=== PATIENT | female | born 1990 | race Caucasian/White ===

== ENCOUNTER → 2020-03-29 15:34 | Outpatient (CLI) | payer OTHER, SELFPAY ==
[2020-03-29 14:56] VITALS: BMI 23.5
[2020-03-29 16:59] LABS: Absolute Lymphocyte Count 1.93 X10^3/uL (0.83-4.51); Absolute Neutrophil Count 3.8 X10^3/uL (2.0-7.7); Basophil# 0.06 X10^3/uL; Basophil% 0.9 % (0-1); Eosinophil# 0.17 X10^3/uL; Eosinophils% 2.5 % (0-5); Hematocrit 43.3 % (37-47); Hemoglobin 14.2 g/dL (12.0-15.0); Lymphocyte # 1.93 X10^3/ul (4.0); Lymphocyte % 28.6 % (19-41); Mean Corp Hgb Conc 32.8 g/dL (32-36); Mean Corpuscular Hgb 30.3 pg (27.0-32.0); Mean Corpuscular Volume 92.5 fL (81-99); Monocyte# 0.75 X10^3/uL; Monocyte% 11.1 % (0-10); NRBC Flagged by Analyzer 0 % (0-5); Neutrophil # 3.83 X10^3/uL (2.7-7.7); Neutrophil % 56.8 % (47-70); Platelet Count 302 K/mm3 (150-450); RBC Distribution Width SD 40.9 fl (35.1-43.9); Red Blood Count 4.68 M/mm3 (4.2-5.4); White Blood Count 6.8 K/mm3 (4.4-11.0)
[2020-03-29 17:35] LABS: AST(SGOT) 13 U/L (15-37); Alanine Aminotransfer ALT/SGPT 18 U/L (13-56); Albumin, Serum 3.5 g/dL (3.2-5.0); Alkaline Phosphatase 77 U/L (45-117); Anion Gap 4 (5-15); BUN 11 mg/dL (7-18); BUN/Creat Ratio 14.9 RATIO (10-20); Calcium,Total 8.4 mg/dL (8.5-10.1); Chloride 109 mmol/L (98-107); Cholesterol 197 mg/dL (200); Creatinine, Serum 0.74 mg/dL (0.55-1.02); EST Glomerular Filtration Rate 100 mL/min (>60); Est Glom Filt Rate - Afr Amer 121 mL/min (>60); Globulin 3.5 g/dL (2.2-4.2); Glucose 81 mg/dL (74-106); High Density Lipoprotein 50 mg/dL; Potassium 4.3 mmol/L (3.5-5.1); Sodium Level 139 mmol/L (136-145); Thyroid Stim Hormone (TSH) 0.96 uIU/mL (0.358-3.74); Triglycerides 138 mg/dL; Very Low Density Lipoprotein 28 mg/dL (5-40)
== END ==
PROVIDERS: PCP Internal Medicine; Referring Provider Nurse Practitioner Family; Visit Provider Nurse Practitioner Family
DX: R03.0 Elevated blood-pressure reading, without diagnosis of hypertension (principal); F41.9 Anxiety disorder, unspecified
CPT/HCPCS: 36415; 80053; 80061; 84443; 85025

== ENCOUNTER 2020-04-04 20:36 | Emergency (ER) | payer OTHER, SELFPAY ==
[2020-03-29 14:56] VITALS: BMI 23.5
[2020-04-04 20:38] VITALS: BP 144/80; PULSE 81; RESP 16; TEMP 36.8; O2SAT 98; BMI 23.0
--- NOTE | 2020-04-04 22:48 | EKG12_ITS ---
Test Reason : CP Blood Pressure : / mmHG Vent. Rate : 057 BPM Atrial Rate : 057 BPM P-R Int : 116 ms QRS Dur : 076 ms QT Int : 400 ms P-R-T Axes : -14 081 056 degrees QTc Int : 389 ms Sinus bradycardia Otherwise normal ECG Confirmed by JAYSON HARRISON, SYDNIE ([id number]), market editor MANFRED MIXON ([id number]) on 04/08/2020 9:39:46 AM Referred By: JOHN Confirmed By:MADAN TYLER MD
--- NOTE | 2020-04-04 23:15 | RAD_ITS ---
STUDY: X-RAY CHEST REASON FOR EXAM: Female, 29 years old. patient complains of anxiety attacks x 4 months. Has heart palpitations and sob. chest pain x 1 week. TECHNIQUE: Frontal and lateral views of the chest. COMPARISON: None. FINDINGS: The lungs are clear and expanded. There is no demonstrated pleural abnormality. Normal size heart. Normal mediastinum and nestor. Normal visualized pulmonary arteries. Normal visualized aortic arch and descending thoracic aorta. Normal visualized thoracic spine. Normal visualized ribs, clavicles, and shoulders. There is no demonstrated abnormality of the visualized soft tissue structures of the upper abdomen. RAD/Chest PA and Lateral IMPRESSION: Normal x-ray examination of the chest. Electronically Signed: Renaldo Copeland MD at 0:43 EDT Tel , Service support ,
[2020-04-04] MEDS: LORazepam 1 MG Tablet PO (23:26)
--- NOTE | 2020-04-05 00:06 | ED.DCSUM_ITS ---
History of Present Illness Chief Complaint: Anxiety Informant: Patient Onset: Month(s) Narrative: Patient has a long history of anxiety. She recently started seeing Tommie Butt at Dr. Kenyon's office. She was seen on March 29 and blood work was unremarkable. She was started on BuSpar. She developed chest pain and that medication was stopped on the fourth. She was started on sertraline. Luana took 1 dose of sertraline and called the office stating that she still not feel well on this medication. She does have hydroxyzine at home to use for anxiety, but only took 1 dose 3 days ago. She presents with some continued chest tightness and shortness of breath. She states she was reading the side effects of the medication that she was given and was worried about serotonin syndrome. - Past Medical History (1) Anxiety Status: Chronic Past Medical History - Allergies and Home Meds Allergies/Adverse Reactions: Allergies shellfish derived Allergy (Mild, Verified 04/04/20 20:40) swelling Primary Care Physician: Tala Kenyon MD [Primary Care Provider] - Prior records reviewed: Yes Smoking Status: Never smoker Review of Systems General: Denies: Chills, Fever Eyes: Denies: Visual changes - bilaterally ENT: Denies: Bilateral ear pain Cardiovascular: Reports: Chest pain Respiratory: Reports: Dyspnea Gastrointestinal: Denies: Abdominal pain, Vomiting, Diarrhea Musculoskeletal: Denies: Extremity Pain Skin: Denies: Rash Neurological: Denies: Headache Hematologic: Denies: Easy bruising, Easy bleeding Allergy: Denies: Uticaria Physical Exam Vital Signs/Narrative: Vital Signs Temp Pulse Resp BP Pulse Ox 04/04/20 20:38 98.3 F 81 16 144/80 H 98 Inital Vital Signs reviewed: Yes General: Well nourished, Well developed Head: Normocephalic ENT: Moist mucous membranes Neck: Supple Cardiovascular: Regular rate, Regular rhythm Respiratory: No distress, CTA bilaterally Abdomen: Soft, Nontender Extremities: Nontender, No edema Skin: Normal color, No rash Neurological: Alert, Oriented x3, Normal Strength, Normal Sensation Psychological: Normal affect Diagnostic/Tx/Re-eval Chest X-Ray - ED: 2 View, Read by ED Physician, Normal, Heart, Lungs, Mediastinum - EKG Initial EKG Interpretation: Sinus Bradycardia - Sinus bradycardia 57 bpm. No acute ischemia. - Medical Decision Making Patient was given 1 mg of p.o. Ativan here. 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 Blood work from last week was reviewed and unremarkable. I do not feel that repeat labs are needed at this time. I advised the patient I believe her chest tightness that she is feeling is secondary to her anxiety, not medication side effect. I will write her a short course of Ativan to use at home. She is to call Tommie Butt tomorrow to update him on her symptoms and for any further prescriptions. ED Disposition - Plan for ED Patient: Disposition: Home or Assisted Living Diagnosis: Anxiety Instructions: ED Stress React Prescriptions: Lorazepam [Ativan] 1 mg PO TID #10 tablet Transmission Status: Sent to [facility] Referrals: Tala Kenyon MD [Primary Care Provider] - As soon as possible
[2020-04-05 00:14] VITALS: RESP 16
== END 2020-04-05 00:16 | disposition home or self-care (01) ==
PROVIDERS: Emergency Provider Emergency Medicine; PCP Internal Medicine
DX: F41.9 Anxiety disorder, unspecified (principal)
CPT/HCPCS: 71046; 93005; 99284

== ENCOUNTER → 2020-07-17 13:18 | Outpatient (CLI) | payer OTHER, SELFPAY | PROVIDERS: PCP Nurse Practitioner Family; Referring Provider Physician Assistant Surgical; Visit Provider Physician Assistant Surgical | DX: Z20.828 Contact with and (suspected) exposure to other viral communicable diseases (principal) | CPT/HCPCS: 87635; U0003 ==

== ENCOUNTER → 2020-08-06 12:57 | Outpatient (CLI) | payer OTHER, SELFPAY ==
[2020-08-06 10:21] VITALS: BMI 24.6
[2020-08-06 15:54] LABS: Chlamydia Trachomatis by PCR Negative (Negative); Neisserai gonorrhoeae by PCR Negative (Negative); Probe Check PASS; Sample Adequacy Control PASS; Specimen Processing Control PASS
[2020-08-10 13:13] LABS: HPV Reflexed? NOT INDICATED
== END ==
PROVIDERS: PCP Nurse Practitioner Family; Referring Provider Nurse Practitioner Women's Health; Visit Provider Nurse Practitioner Women's Health
DX: Z12.4 Encounter for screening for malignant neoplasm of cervix (principal); Z11.3 Encounter for screening for infections with a predominantly sexual mode of transmission
CPT/HCPCS: 87491; 87591; 88175; G0145

== ENCOUNTER 2020-12-30 09:49 | Day surgery (SDC) | payer OTHER, SELFPAY ==
[2020-12-10 13:15] VITALS: BMI 23.8
[2020-12-30] VITALS (7 sets, daily range): BP systolic 115–143; BP diastolic 69–94; PULSE 70–87; RESP 16–18; TEMP 36.4–36.6; O2SAT 100; BMI 24.5
--- NOTE | 2020-12-30 | GASB_PTH ---
PATIENT: SHAYLEE REEVES LOC: EN U#:[id number] AGE/SX: 30/F ROOM: RE12/30/[address]: Dr. Tasha Dominguez MD : 1990 BED: DIS: 12/30/2020 SPEC #: [id number] RECD: 12/30/20 13:37 STATUS: RICK REChelita #: [id number] KATHERINE: 12/30/20 00:[address]: Tasha Dominguez DEPT: SURGICAL PATHOLOGY RECD BY: Lasha Chavez ENTERED: 12/30/20 13:37 SP TYPE: Gastric Bx OTHR DR: Dr. Tala Kenyon MD Tissues: A - Gastric mucous membrane B - Gastric mucous membrane Procedures: Special Stain Group II Surgery Specimen Level IV Alcian Blue/PAS (control) HEADER OPERATION: E[place] ([facility] [place] PRE-OP DIAGNOSIS: GERD, belching TISSUE SUBMITTED: A ? Antrum biopsy for H. pylori and path, B ? Biopsy of GE junction MICROSCOPIC DIAGNOSIS A. Antrum biopsy: Mild gastritis. See microscopic description and comment. B. GE junction, biopsy: Fragments of gastric mucosa with mild chronic inflammation. Negative for intestinal metaplasia (goblet cell metaplasia). See comment. SJ:rg 12/31/2020 COMMENT A. The results of immunohistochemistry for Helicobacter pylori will be reported separately ([id number]). B. Alcian blue/PAS stain with matched control is used in the evaluation of the specimen. MICROSCOPIC DESCRIPTION Slides are reviewed. A. The specimen shows fragments of gastric mucosa with chronic inflammatory cell infiltrates in the lamina propria consisting of lymphocytes and plasma cells, consistent with mild chronic gastritis. GROSS DESCRIPTION A - Received in fixative is one container labeled with the patient's name and designated antrum biopsy. The specimen consists of one irregular fragment of light torres soft tissue that measures 0.3 x 0.3 x 0.1 cm. The specimen is totally submitted in one cassette. B - Received in fixative is one container labeled with the patient's name and designated biopsy of GE junction. The specimen consists of multiple irregular fragments of light torres soft tissue that in aggregate measure 0.5 x 0.3 x 0.1 cm. The specimen is totally submitted in one cassette. / KRISTEN:maribeth 12/30/20 TC:3 CPT: 15128 x2, 21123
[2020-12-30 10:15] LABS: Internal QC Validated? YES +Cl - CLEAR BKGD; Pregnancy, Urine Negative Negative
--- NOTE | 2020-12-30 10:29 | HP.PCM_ITS ---
History and Physical Date of Admission: 12/30/20 Date of Service: 12/10/20 MR#:[id number]:[id number]: SHAYLEE REEVES [facility] #:[id number]:1990 Provider:Vito Bermudez/Sex: 30/F [place] [place] Int[place] Vital Signs 12/10/20 Height 5 ft 9 in 12/10/20 Weight: 161 lb 12/10/20 BMI 23.8 12/10/20 BP 137/92 H 12/10/20 Blood Pressure Location Rt brachial 12/10/20 Position Sitting 12/10/20 Respiration 16 12/10/20 Pulse 77 12/10/20 Pulse Source Monitor 12/10/20 Temp 98.1 F 12/10/20 Temp Source Temporal 12/10/20 Pulse Oximetry (%) 99 12/10/20 Oxygen Delivery Method room air Intake Visit Reasons: EGD Chief Complaint: Dysphagia Casting Assistant Required: No Is patient in pain?: No Allergies shellfish derived Allergy (Mild, Verified 12/10/20 13:16) swelling Medications lorazepam 0.5 mg tablet 0.5 mg PO DAILY PRN 08/07/20 [History Confirmed 12/10/20] buspirone 5 mg tablet 5 mg PO BID #180 tab 11/08/20 [Rx Confirmed 12/10/20] famotidine 40 mg tablet 40 mg PO DAILY tablet 12/10/20 [History Confirmed 12/10/20] pantoprazole 40 mg tablet,delayed release 40 mg PO DAILY #30 tablet 12/10/20 [Rx Confirmed 12/10/20] [facility] Medical History (Updated 12/10/20 @ 13:15 by Vernell Fernandez) Allergies (Acute) Anxiety (Acute) SOB (shortness of breath) (Acute) Chest pain (Acute) Menorrhagia with regular cycle (Acute) Dysmenorrhea (Acute) Anxiety (Chronic) Surgical History (Updated 12/10/20 @ 13:15 by Vernell Fernandez) Tumor removal (Acute) [place] teeth extracted (Acute) History of right oophorectomy (Acute) Family History Grandmother Anxiety Arthritis Hypertension Thyroid disorder Grandfather Diabetes Grandfather Diabetes Hypertension progressive supra neuclar palsy Father Hypertension Skin cancer Mother Hypertension Other Kidney stones Social History (Updated 12/10/20 @ 13:[address] Tasha Dominguez MD) household members: significant other number of children: 0 current occupational status: employed current occupation: [employer] - works from home history of recent travel: No sexually active: Yes Smoking Status: Never smoker alcohol intake: current alcohol intake frequency: 0-2 drinks per day Alcohol type: beer substance use type: does not use what type of physical activity do you participate in: none seatbelt use: always do you feel safe at home: Yes additional social history: single Female Reproductive History Menstrual Ab induced: 1 Ab spontaneous: 1 HPI HPI HPI: SHAYLEE REEVES, is a 30 F who presents to the office today for HPI HPI Surgical H&P: Yes HPI: SHAYLEE REEVES, is a 30 F who presents to the office today for reflux. Patient states she has been noticing increased burping over the last 2 years and has gotten worse over the last year. Patient did see Dr. Franco - ENT, who initially put her on omeprazole 40 mg p.o. daily patient states it did help some however she was still having some symptoms. Once patient was off of it she did notice that her symptoms were worse. Patient is currently on famotidine 40 mg p.o. daily which again is helping but does not completely resolve symptoms. Patient has never had an EGD or colonoscopy. Patient denies any family history of colon cancer. Patient days denies any abdominal pain. Does state that she does occasionally feel like she has a lump in her throat and has somewhat times coughed up mucus. ROS General General: No weight change, fatigue, colon cancer, breast cancer or weakness HEENT HEENT: Yes difficulty swallowing and swollen glands; no eye injury, eye surgery or hoarseness Endo Endocrine: No thyroid disease, diabetes mellitus, thyroid cancer, Hair loss, heat intolerance or cold intolerance Skin Skin: No rash or changing moles Musc Musculoskeletal: No back problems, arthritis, rheumatoid arthritis, gout or joint pain Cardio Cardiovascular: No pacemaker, heart disease, atrial fibrillation, high blood pressure, heart attack, heart stent, palpitations, shortness of breat with exertion or chest pain Psych Psychiatric: Yes anxiety; no depression or hearing voices Resp Respiratory: No shortness of breath, No sleep apnea, No cough, No COPD, No asthma, No emphysema, No wheezing Gastro Gastrointestinal: No abdominal pain, No nausea or vomiting, No diarrhea, No constipation, No blood in stool, Yes acid reflux, No hemorrhoids, No ulcers, No gallbladder problem, No black,tarry stools [place] Hematologic: No blood thinners, No blood disorders, No bleeding, No anemia, No blood clots Neuro Neurologic: No system reviewed and no additional complaints, except as docu, No as per HPI, No abnormal walking, No abnormal hearing, No abnormal movements, No abnormal speech, No behavioral changes, No burning sensations, No confusion, No seizure-like activity, No unsteadiness, No dizziness, No localized weakness, No frequent falls, No headache(s), No lack of coordination, No loss of vision, No memory loss, No numbness, No other visual disturbances, No radiating pain, No restless legs, No sensory deficit, No fainting, No tingling, No tremor(s), No weakness, No other Exam Const General: cooperative, comfortable, no acute distress, well developed Resp Effort & Inspection: normal respiratory effort Cardio Rate: regular rate GI Inspection: non-distended Palpation: soft, no guarding, nontender Psych Affect: normal affect Assessment & Plan Problems 1. Gastroesophageal reflux disease K21.9 2. Belching symptom R14.2 Plan We will start patient on pantoprazole 40 mg p.o. daily. I have discussed the above with the patient. I have offered the patient EGD for evaluation. Scheduled for 01/26/2021 per patient request I have explained the risks/benefits of the procedure and described the pr ocedure. I have discussed the risks with the patient, including but not limited to: infection, bleeding, perforation of the GI tract requiring emergency surgery, inability to complete the procedure, injury to any internal organs, complications of anesthesia, etc. - the patient understands and agrees to proceed. I have answered all the patient's questions to the patient's satisfaction and the patient has no further questions. Tasha Dominguez M.D. Pager: [phone] [facility] [address] [place] [address], [address] [place] [address] Office: [phone] Orders Orders: EGD Today Medications New: pantoprazole 40 mg PO DAILY 30 tabs 3RF On Hold: famotidine Hold Comment: Order Changed 40 mg PO DAILY Plan Detail Follow Up We will schedule EGD. Coding Level of Care Code Off vis,new,level 3 Diagnoses Gastroesophageal reflux disease K21.9 Belching symptom R14.2 COVID (Procedure Consent) Procedure Criteria Procedure Criteria: Yes Elective The surgeon/proceduralist and patient have discussed in detail the risk of exposure to and/or potential harm posed by the COVID-19 virus with having a surgery/procedure at this time versus the risk of delaying the surgery/procedure. It is not possible to know either the risk of delaying the surgery or procedure or chance of getting an infection with perfect accuracy, but a joint decision was made between the patient and the surgeon/proceduralist to proceed at this time with the scheduled surgery/procedure as indicated on the consent form. 12/10/20 1339<Electronically signed by Tasha Dominguez MD>Date Tsaha Dominguez MD
[2020-12-30] MEDS: Lactated Ringers 1,000 ML 100 ML IV (10:32)
--- NOTE | 2020-12-30 10:45 | IMM_PTH ---
PATIENT: SHAYLEE REEVES LOC: EN U#:[id number] AGE/SX: 30/F ROOM: RE12/30/[address]: Dr. Tasha Dominguez MD : 1990 BED: DIS: 12/30/2020 SPEC #: [id number] RECD: 12/30/20 14:15 STATUS: RICK REQ #: [id number] KATHERINE: 12/30/20 10:[address]: Tasha Dominguez DEPT: IMMUNOHISTOCHEMISTRY RECD BY: Leah Blanco ENTERED: 12/30/20 14:16 SP TYPE: IMMUNO OTHR DR: Dr. Tala Kenyon MD Tissues: A - Stomach, NOS Procedures: H Pylori (initial) PHYSICIAN & INSTITUTION [place] [id number] SPECIMEN INFORMATION: Tissue Source: A ? Antrum biopsy Clinical Info: GERD, belching Specimen Number: [id number] CPT code: 81744 METHODOLOGY: Deparaffinized sections of prefer/formalin-fixed tissue or PAP/DQ stained slides are incubated with monoclonal/polyclonal antibodies/oligonucleotide probes. Localization is made via biotin free immunoperoxidase method. Appropriate controls are performed and reacted as expected. Results on target cell population are indicated in the following table: RESULTS: ANTIBODY / CLONE RESULT Block A H Pylori (polyclonal) negative These tests were developed and their performance characteristics determined by [facility]. They may not have been cleared or approved by the U.S. Food and Drug Administration. The FDA has determined that such clearance or approval is not necessary. INTERPRETATION: A. Antrum biopsy: Negative for Helicobacter pylori organisms. SJ:maribeth 12/31/2020
--- NOTE | 2020-12-30 11:23 | OP.CCLET_ITS ---
12/30/2020 Taal Kenyon MD [address] [place] [address] [place] [address] Re : Upper GI endoscopy procedure for Alisa Molina Dear Dr. Kenyon This procedure was performed on Wednesday, December 30, 2020. My impressions and recommendations are as follows: Impressions : - Z-line irregular. Biopsied. - Erythematous mucosa in the antrum. Biopsied. - Normal examined duodenum. - The examination was otherwise normal. Recommendations : - Await pathology results. - Discharge patient to home. - Resume previous diet. - Continue present medications. My findings are described in the full procedure note, which is enclosed. If I can be of further assistance, please feel free to contact me at Doctor phone number(s): , Work: . Sincerely, MD Tasha Garnica MD 12/30/2020 11:23:02 AM This report has been signed electronically.
--- NOTE | 2020-12-30 11:23 | OP.EGD_ITS ---
Patient Name: Alisa Molina Procedure Date: 12/30/2020 11:00 AM Date of : 1990 Age: 30 Procedure: Upper GI endoscopy Indications: Suspected esophageal reflux Providers: Tasha Dominguez MD Referring MD: Tala Kenyon MD Medicines: Monitored Anesthesia Care Patient Profile: This is a 30 year old female. Complications: No immediate complications. Procedure: Pre-Anesthesia Assessment: - Prior to the procedure, a History and Physical was performed, and patient medications and allergies were reviewed. The patient's tolerance of previous anesthesia was also reviewed. The risks and benefits of the procedure and the sedation options and risks were discussed with the patient. All questions were answered, and informed consent was obtained. Prior Anticoagulants: The patient has taken no previous anticoagulant or antiplatelet agents. ASA Grade Assessment: Per anesthesia. After reviewing the risks and benefits, the patient was deemed in satisfactory condition to undergo the procedure. After obtaining informed consent, the endoscope was passed under direct vision. Throughout the procedure, the patient's blood pressure, pulse, and oxygen saturations were monitored continuously. The Endoscope was introduced through the mouth, and advanced to the second part of duodenum. The upper GI endoscopy was accomplished without difficulty. The patient tolerated the procedure well. Scope In: 11:08:26 AM Scope Out: 11:16:26 AM Total Procedure Duration Time 0 hours 8 minutes 0 seconds Findings: The Z-line was irregular. Biopsies were taken with a cold forceps for histology. Mildly erythematous mucosa without bleeding was found in the gastric antrum. Biopsies were taken with a cold forceps for histology. Biopsies were taken with a cold forceps for Helicobacter pylori cultures. The examined duodenum was normal. The cardia and gastric fundus were normal on retroflexion. The exam was otherwise without abnormality. Impression: - Z-line irregular. Biopsied. - Erythematous mucosa in the antrum. Biopsied. - Normal examined duodenum. - The examination was otherwise normal. Recommendation: - Await pathology results. - Discharge patient to home. - Resume previous diet. - Continue present medications. Procedure Code(s): --- Professional --- 71066, PT, Esophagogastroduodenoscopy, flexible, transoral; with biopsy, single or multiple Diagnosis Code(s): --- Professional --- K22.8, Other specified diseases of esophagus K31.89, Other diseases of stomach and duodenum CPT copyright 2017 [employer]. All rights reserved. The codes documented in this report are preliminary and upon inside wirer review may be revised to meet current compliance requirements. MD Tasha Garnica MD 12/30/2020 11:23:02 AM This report has been signed electronically. Number of Addenda: 0 Note Initiated On: 12/30/2020 11:00 AM
== END 2020-12-30 12:28 ==
LOC: EN 09:49 → AC 09:51
PROVIDERS: Anesthesiology; PCP Internal Medicine; Referring Provider Internal Medicine; Visit Provider Surgery
PROC: 0DJ08ZZ Inspection of Upper Intestinal Tract, Via Natural or Artificial Opening Endoscopic (ICD-10-PCS; CPT 43235; principal; 2020-12-30 10:40)
DX: K29.50 Unspecified chronic gastritis without bleeding (principal); K21.9 Gastro-esophageal reflux disease without esophagitis; R14.2 Eructation; R13.10 Dysphagia, unspecified; F41.9 Anxiety disorder, unspecified; K22.8 Other specified diseases of esophagus; K31.89 Other diseases of stomach and duodenum; Z90.721 Acquired absence of ovaries, unilateral; Z97.3 Presence of spectacles and contact lenses
CPT/HCPCS: 43239; 81025; 87426; 88305; 88313; 88342; C9803; J7120; J2405

== ENCOUNTER 2021-07-02 19:42 | Emergency (ER) | payer OTHER, SELFPAY ==
[2021-07-02 19:42] VITALS: BP 161/99; PULSE 89; RESP 16; TEMP 36.4; O2SAT 100; BMI 23.6
[2021-07-02 20:18] LABS: Absolute Lymphocyte Count 2.59 X10^3/uL (0.83-4.51); Absolute Neutrophil Count 6.9 X10^3/uL (2.0-7.7); Basophil# 0.06 X10^3/uL; Basophil% 0.6 % (0-1); Eosinophil# 0.14 X10^3/uL; Eosinophils% 1.3 % (0-5); Hematocrit 41.7 % (37-47); Hemoglobin 13.8 g/dL (12.0-15.0); Lymphocyte # 2.59 X10^3/ul (0.83-4.51); Lymphocyte % 24.4 % (19-41); Mean Corp Hgb Conc 33.1 g/dL (32-36); Mean Corpuscular Hgb 29.1 pg (27.0-32.0); Mean Corpuscular Volume 87.8 fL (81-99); Mean Platelet Vol. 9.7 fl (6.2-12.0); Monocyte# 0.88 X10^3/uL; Monocyte% 8.3 % (0-10); NRBC Flagged by Analyzer 0 % (0-5); Neutrophil # 6.91 X10^3/uL (2.7-7.7); Neutrophil % 64.9 % (47-70); Platelet Count 334 K/mm3 (150-450); RBC Distribution Width CV 12.3 % (11.6-14.6); RBC Distribution Width SD 39.7 fl (35.1-43.9); Red Blood Count 4.75 M/mm3 (4.2-5.4); White Blood Count 10.6 K/mm3 (4.4-11.0)
[2021-07-02 20:31] LABS: Anion Gap 4 (5-15); BUN 13 mg/dL (7-18); BUN/Creat Ratio 14.9 RATIO (10-20); Calcium,Total 9.3 mg/dL (8.5-10.1); Chloride 106 mmol/L (98-107); Creatinine, Serum 0.87 mg/dL (0.55-1.02); EST Glomerular Filtration Rate 82 mL/min (>60); Est Glom Filt Rate - Afr Amer 99 mL/min (>60); Estimated Creatinine Clearance 100.61 ml/min; Glucose 98 mg/dL (74-106); Potassium 3.7 mmol/L (3.5-5.1); Sodium Level 138 mmol/L (136-145)
[2021-07-02 20:36] LABS: Internal QC Validated? YES +Cl - CLEAR BKGD; Pregnancy, Serum, hCG Quali. NEGATIVE Negative
[2021-07-02 20:45] LABS: Mucous, Urine 0 SEEN /hpf (<or=2+); Red Blood Cells-Urine 0 SEEN /hpf (0-5)
[2021-07-02 20:47] LABS: Color, Urine Yellow (Yellow); Glucose, Dipstick Normal (Normal); Ketone-Dipstick 15 mg/dl (Negative); Leukocyte Esterase-Dipstick 500 /ul (Negative); Nitrite-Dipstick Negative (Negative); Occult Blood-Urine Negative /ul (Negative); Protein-Dipstick Negative (Negative); Specific Gravity, Urine 1.025 (1.002-1.030); Urine Bilirubin Dipstick Negative (Negative); Urine Clarity Sl. Cloudy (Clear); Urine Urobilinogen Normal (Normal)
[2021-07-02 20:59] LABS: Squamous Epithelial Cells - UA 10-25 SEEN /hpf (5-10)
[2021-07-02 21:00] LABS: Bacteria 1+ /hpf (None Seen); White Blood Cells 5-10 SEEN /hpf (0-5)
[2021-07-02 21:48] VITALS: RESP 16
[2021-07-02] MEDS: Cephalexin 250 MG Capsule 500 MG PO (21:56)
[2021-07-02] MEDS: Ondansetron ODT 4 MG Tablet PO (21:56)
--- NOTE | 2021-07-02 22:05 | EDS_ITS ---
HPI History of Present Illness Chief Complaint: Abd Pain Informant: patient Narrative Narrative: Patient is a 30-year-old female presenting with 1 week of headache, feeling off, lightheadedness and abdominal pain. Is worse on her right side and in her right back. She had increased urinary frequency and today developed dysuria. She had some associated nausea and increased acid reflux. Denies any fever. Denies any abnormal vaginal bleeding or discharge. Last menstrual period was about 1 month ago. Has a history of right oophorectomy and teratoma removal. Denies any other complaints at this time. [facility] Medical History (Updated 07/02/21 @ 22:[address] Khushboo Emery, DO) Alcohol use Allergies Anxiety Anxiety Anxiety Chest pain Dysmenorrhea GERD (gastroesophageal reflux disease) GERD (gastroesophageal reflux disease) Injury of back Irregular heart beat Menorrhagia with regular cycle Non-smoker Shortness of breath on exertion SOB (shortness of breath) Wears contact lenses Home Medications lorazepam 0.5 mg tablet 0.5 mg PO DAILY PRN 08/07/20 [History Last Taken 12/30/20 08:30] pantoprazole 40 mg tablet,delayed release See Rx Instructions .ROUTE .COMPLEX #30 tab 04/29/21 [Rx Last Taken Unknown] buspirone 5 mg tablet 5 mg PO BID #180 tab 05/21/21 [Rx Last Taken Unknown] cephalexin 500 mg PO Q6 #28 cap 07/02/21 [Rx Last Taken Unknown] ondansetron 4 mg PO Q8H PRN #10 tab 07/02/21 [Rx Last Taken Unknown] Allergy/AdvReac Type Severity Reaction Status Date / Time shellfish derived Allergy Mild swelling Verified 07/02/21 19:44 naproxen AdvReac Vomiting Verified 07/02/21 19:44 Family History Grandmother Anxiety Arthritis Hypertension Thyroid disorder Grandfather Diabetes Grandfather Diabetes Hypertension progressive supra neuclar palsy Father Hypertension Skin cancer Mother Hypertension Other Kidney stones Surgical History History of endoscopy History of right oophorectomy Tumor removal [place] teeth extracted Social History household members: significant other number of children: 0 current occupational status: employed current occupation: [employer] - works from home history of recent travel: No sexually active: Yes Smoking Status: Never smoker alcohol intake: current alcohol intake frequency: 0-2 drinks per day Alcohol type: beer substance use type: does not use what type of physical activity do you participate in: none seatbelt use: always do you feel safe at home: Yes additional social history: single ROS ROS ED Constitutional Constitutional ED: Reports other Details: malaise ; Denies chills or fever(s) Eyes Eyes: Denies change in vision ENT ENT ED: Denies rhinorrhea Cardiovascular Cardiovascular: Denies chest pain or palpitations Respiratory/Chest Respiratory/Chest: Denies cough or dyspnea Gastrointestinal Gastrointestinal: Reports abdominal pain and nausea; Denies diarrhea or vomiting Genitourinary Genitourinary ED: Reports dysuria and urinary frequency; Denies hematuria Musculoskeletal Musculoskeletal: Reports back pain; Denies arthralgias or myalgias Integumentary Denies rash Neurologic Neurologic: Reports weakness; Denies headache(s) Psychiatric Psychiatric: Denies depression EXAM Physical Exam Const Vital Signs: 07/02/21 19:42 07/02/21 21:48 Temperature 97.6 F L Temperature Source Temporal Pulse Rate 89 Respiratory Rate 16 16 Blood Pressure 161/99 H Blood Pressure Mean 119 Pulse Ox 100 Oxygen Delivery Method Room Air Positive well nourished and well developed General Appearance ED: well developed HEENT Reports moist mucous membranes Negative for tenderness Eyes PERRL and EOMs intact bilaterally Neck supple and no meningeal signs Resp normal respiratory effort and clear to auscultation bilaterally Cardio regular rhythm and no murmurs GI normal to inspection, nondistended, normoactive bowel sounds GI Narrative: Tenderness to palpation of the right lateral mid abdomen/right flank. Mild TTP suprapubic area . No pain at McBurney's point. Negative murphie's sign Palpation: Negative for guarding or rebound tenderness present Back/Spine General Back: CVA tenderness right Thoracic Spine / Upper Back: Negative for thoracic spinal tenderness Neuro oriented x3 Sensorium / Orientation: alert Psych mental status grossly normal Skin no rashes or lesions noted MDM MDM MDM Narrative Medical decision making narrative: Patient evaluated for 1 week of feeling off and now developing right-sided abdominal pain and urinary symptoms. She does not have any pain in her lower abdomen I do not suspect acute appendicitis. Her CBC is normal. Urinalysis is consistent with urinary tract infection and she has 500 leukoesterase, 5-10 white blood cells and 1+ bacteria. It is mildly contaminated. She is otherwise well-appearing. Given the fact that she is having systemic symptoms and right flank pain will cover for pyelonephritis. Given first dose of Keflex in the ER as well as Zofran. Given a prescription for Zofran so she tolerates her antibiotics. Instructed on return precautions. Encouraged follow-up with a primary care doctor. Urine cultures pending. At this time I do not think abdominal imaging is indicated. Her kidney function is normal and I do not think this is a kidney stone. She denies any vaginal symptoms and I do not suspect tubo-ovarian abscess or pelvic inflammatory disease. Lab Data Attestation: I reviewed the patient's lab results. Labs: Laboratory Results - last 24 hr 07/02/21 07/02/21 07/02/21 20:10 20:10 20:10 WBC 10.6 RBC 4.75 Hgb 13.8 Hct 41.7 MCV 87.8 MCH 29.1 MCHC 33.1 RDW Std Deviation 39.7 RDW Coeff of Preethi 12.3 Plt Count 334 MPV 9.7 Immature Gran % (Auto) 0.500 Neut % (Auto) 64.9 Lymph % (Auto) 24.4 [place] % (Auto) 8.3 Eos % (Auto) 1.3 Baso % (Auto) 0.6 Absolute Neuts (auto) 6.9 Absolute Lymphs (auto) 2.59 Nucleated RBC % 0 Sodium 138 Potassium 3.7 Chloride 106 Carbon Dioxide 28.0 Anion Gap 4 L BUN 13 Creatinine 0.87 Estim Creat Clear Calc 100.61 Est GFR (MDRD) Af Amer 99 Est GFR (MDRD) Non-Af 82 BUN/Creatinine Ratio 14.9 Glucose 98 Calcium 9.3 Serum , Qual NEGATIVE Urine Color Urine Clarity Urine pH Ur Specific [place] Urine Protein Urine Glucose (UA) Urine Ketones Urine Occult Blood Urine Nitrite Urine Bilirubin Urine Urobilinogen Ur Leukocyte Esterase Urine RBC Urine WBC Ur Squamous Epith Cells Urine Bacteria Urine Mucus 07/02/21 20:36 WBC RBC Hgb Hct MCV MCH MCHC RDW Std Deviation RDW Coeff of Preethi Plt Count MPV Immature Gran % (Auto) Neut % (Auto) Lymph % (Auto) [place] % (Auto) Eos % (Auto) Baso % (Auto) Absolute Neuts (auto) Absolute Lymphs (auto) Nucleated RBC % Sodium Potassium Chloride Carbon Dioxide Anion Gap BUN Creatinine Estim Creat Clear Calc Est GFR (MDRD) Af Amer Est GFR (MDRD) Non-Af BUN/Creatinine Ratio Glucose Calcium Serum , Qual Urine Color Yellow Urine Clarity Sl. Cloudy Urine pH 5.0 Ur Specific [place] 1.025 Urine Protein Negative Urine Glucose (UA) Normal Urine Ketones 15 H Urine Occult Blood Negative Urine Nitrite Negative Urine Bilirubin Negative Urine Urobilinogen Normal Ur Leukocyte Esterase 500 H Urine RBC 0 SEEN Urine WBC 5-10 SEEN Ur Squamous Epith Cells 10-25 SEEN Urine Bacteria 1+ Urine Mucus 0 SEEN Discharge Plan Triage Chief Complaint: Abd Pain ED Provider: Khushboo Emery Dx/Rx/DC Orders Clinical Impression: Pyelonephritis of right kidney, Nausea Instructions: ED Pyelonephritis, Female (Adult) Prescriptions: New cephalexin 500 mg capsule 500 mg PO Q6 Qty: 28 RF: 0 ondansetron 4 mg tablet,disintegrating 4 mg PO Q8H PRN (Reason: nausea and vomiting) Qty: 10 RF: 0 No Action lorazepam 0.5 mg tablet 0.5 mg PO DAILY PRN (Reason: Anxiety) RF: 0 buspirone 5 mg tablet 5 mg PO BID Qty: 180 RF: 1 pantoprazole 40 mg tablet,delayed release (DR/EC) See Rx Instructions .ROUTE .COMPLEX Qty: 30 RF: 3 Primary Care Provider: Tala Kenyon Referrals: Tala Kenyon MD [Primary Care Provider] - Disposition Disposition: Home, Self Care Discharge Date/Time: 07/02/21 22:15
== END 2021-07-02 22:15 | disposition home or self-care (01) ==
PROVIDERS: Emergency Provider Emergency Medicine; PCP Internal Medicine
DX: N12 Tubulo-interstitial nephritis, not specified as acute or chronic (principal); R11.0 Nausea; K21.9 Gastro-esophageal reflux disease without esophagitis; Z90.721 Acquired absence of ovaries, unilateral
CPT/HCPCS: 80048; 81001; 84703; 85025; 87086; 87088; 99285; A4216

== ENCOUNTER 2021-07-14 12:12 | Emergency (ER) | payer OTHER, SELFPAY ==
[2021-07-14 12:12] VITALS: BP 143/103; PULSE 93; RESP 16; TEMP 36.4; O2SAT 99; BMI 23.8
--- NOTE | 2021-07-14 13:01 | EDS_ITS ---
HPI History of Present Illness Chief Complaint: General Illness Informant: patient Onset/Context/Timing Onset: Yesterday Context: Gradual Onset Timing: Continuous and Waxes and wanes Quality: Dull Location: Right flank Worsened by: Nothing Relieved by: Nothing Associated Symptoms Associated Symptoms: Headache, nausea Narrative Narrative: Patient presents with some mild right flank pain that began again last night. Patient states she was recently treated for urinary tract infection. Patient states she finished her antibiotics 2 days ago. Patient states she has a feeling like she cannot focus. Patient denies any fevers but admits to some subjective chills and sweats. Patient admits to nausea but denies any vomiting. Patient denies any dysuria or hematuria. Patient admits to some chest pain and shortness of breath. [facility] Medical History Alcohol use Allergies Anxiety Anxiety Anxiety Chest pain Dysmenorrhea GERD (gastroesophageal reflux disease) GERD (gastroesophageal reflux disease) Injury of back Irregular heart beat Menorrhagia with regular cycle Non-smoker Shortness of breath on exertion SOB (shortness of breath) Wears contact lenses Home Medications lorazepam 0.5 mg tablet 0.5 mg PO DAILY PRN 08/07/20 [History Last Taken 12/30/20 08:30] pantoprazole 40 mg tablet,delayed release See Rx Instructions .ROUTE .COMPLEX #30 tab 04/29/21 [Rx Last Taken Unknown] buspirone 5 mg tablet 5 mg PO BID #180 tab 05/21/21 [Rx Last Taken Unknown] cephalexin 500 mg PO Q6 #28 cap 07/02/21 [Rx Last Taken Unknown] ondansetron 4 mg PO Q8H PRN #10 tab 07/02/21 [Rx Last Taken Unknown] Allergy/AdvReac Type Severity Reaction Status Date / Time shellfish derived Allergy Mild swelling Verified 07/14/21 12:15 naproxen AdvReac Vomiting Verified 07/14/21 12:15 Family History Grandmother Anxiety Arthritis Hypertension Thyroid disorder Grandfather Diabetes Grandfather Diabetes Hypertension progressive supra neuclar palsy Father Hypertension Skin cancer Mother Hypertension Other Kidney stones Surgical History History of endoscopy History of right oophorectomy Tumor removal [place] teeth extracted Social History household members: significant other number of children: 0 current occupational status: employed current occupation: [email or web address] - works from home history of recent travel: No sexually active: Yes Smoking Status: Never smoker alcohol intake: current alcohol intake frequency: 0-2 drinks per day Alcohol type: beer substance use type: does not use what type of physical activity do you participate in: none seatbelt use: always do you feel safe at home: Yes additional social history: single ROS ROS ED Constitutional Constitutional ED: Reports chills, subjective and sweats; Denies fever(s) Eyes Eyes: Denies blurry vision or change in vision ENT ENT ED: Denies rhinorrhea or sore throat Cardiovascular Cardiovascular: Reports chest pain; Denies palpitations Respiratory/Chest Respiratory/Chest: Reports dyspnea; Denies cough Gastrointestinal Gastrointestinal: Reports nausea; Denies vomiting Genitourinary Genitourinary ED: Denies dysuria or hematuria Musculoskeletal Musculoskeletal: Reports back pain; Denies neck pain Integumentary Denies abscess or rash Neurologic Neurologic: Reports headache(s); Denies weakness Allergic/Immunologic Allergic/Immunologic ED: Denies mouth swelling or urticaria EXAM Physical Exam Const Vital Signs: 07/14/21 12:12 07/14/21 12:58 07/14/21 13:07 Temperature 97.5 F L Temperature Source Temporal Pulse Rate 93 89 Respiratory Rate 16 16 Respiratory Pattern Normal Blood Pressure 143/103 H Blood Pressure Mean 116 Pulse Ox 99 99 Oxygen Delivery Method Room Air Room Air Positive well nourished and well developed General Appearance ED: well developed HEENT Reports moist mucous membranes Neck supple and no JVD Chest Wall inspection of chest normal and palpation of chest normal Resp normal respiratory effort and clear to auscultation bilaterally Cardio regular rate, regular rhythm and no murmurs GI normal to inspection, nondistended, normoactive bowel sounds and non-tender Palpation: soft Back/Spine no CVA tenderness Extremity normal to inspection General Extremety ED: Negative for edema or tenderness General Extremity: Negative for edema Neuro oriented x3, CN's II-XII intact bilaterally and no sensory deficits noted Sensorium / Orientation: alert Motor Exam: strength 5/5 throughout Psych mental status grossly normal Skin no rashes or lesions noted MDM MDM MDM Narrative Medical decision making narrative: Patient was given IV fluids, morphine, and Zofran. EKG was obtained. On my interpretation, it showed a normal sinus rhythm with a rate of 65. HI interval, QRS interval, and QTc intervals were all normal. [place] was normal. There are no acute ST or T wave changes. Portable 1 view chest x-ray was obtained. On my interpretation, lung salazar are clear. There is normal cardiac silhouette. Bony thorax is normal. There is no acute process noted. Radiologist also interpreted the x-ray and agrees. CT scan of the abdomen pelvis was obtained. There is a small left ovarian cyst. There is no other acute abnormality noted. This was interpreted by the radiologist and reviewed by myself. CBC was within normal limits. Comprehensive metabolic profile was normal. High-sensitivity troponin was less than 3. Serum hCG was negative. Patient states her nausea had improved but is starting to come back. Patient was given a dose of Phenergan. Patient was advised of her findings. Patient was instructed to follow-up with her primary care physician in 3 to 5 days. Patient understood and was agreeable with the plan. All questions were answered. Lab Data Attestation: I reviewed the patient's lab results. Labs: Laboratory Results - last 24 hr 07/14/21 07/14/21 07/14/21 13:25 13:25 13:25 WBC 5.6 RBC 4.65 Hgb 13.6 Hct 40.5 MCV 87.1 MCH 29.2 MCHC 33.6 RDW Std Deviation 39.7 RDW Coeff of Preethi 12.4 Plt Count 270 MPV 9.8 Immature Gran % (Auto) 0.400 Neut % (Auto) 63.4 Lymph % (Auto) 24.5 [place] % (Auto) 8.7 Eos % (Auto) 2.1 Baso % (Auto) 0.9 Absolute Neuts (auto) 3.6 Absolute Lymphs (auto) 1.38 Nucleated RBC % 0 Sodium 139 Potassium 4.1 Chloride 109 H Carbon Dioxide 28.0 Anion Gap 2 L BUN 7 Creatinine 0.75 Estim Creat Clear Calc 116.71 Est GFR (MDRD) Af Amer 118 Est GFR (MDRD) Non-Af 98 BUN/Creatinine Ratio 9.4 L Glucose 93 Calcium 8.7 Total Bilirubin 0.30 AST 7 L ALT 17 Alkaline Phosphatase 71 Troponin I High Sens < 3 L Total Protein 6.9 Albumin 3.2 Globulin 3.7 Albumin/Globulin Ratio 0.9 Lipase 119 Serum , Qual NEGATIVE Urine Color Urine Clarity Urine pH Ur Specific [place] Urine Protein Urine Glucose (UA) Urine Ketones Urine Occult Blood Urine Nitrite Urine Bilirubin Urine Urobilinogen Ur Leukocyte Esterase Urine RBC Urine WBC Ur Squamous Epith Cells Urine Bacteria Urine Mucus 07/14/21 13:34 WBC RBC Hgb Hct MCV MCH MCHC RDW Std Deviation RDW Coeff of Preethi Plt Count MPV Immature Gran % (Auto) Neut % (Auto) Lymph % (Auto) [place] % (Auto) Eos % (Auto) Baso % (Auto) Absolute Neuts (auto) Absolute Lymphs (auto) Nucleated RBC % Sodium Potassium Chloride Carbon Dioxide Anion Gap BUN Creatinine Estim Creat Clear Calc Est GFR (MDRD) Af Amer Est GFR (MDRD) Non-Af BUN/Creatinine Ratio Glucose Calcium Total Bilirubin AST ALT Alkaline Phosphatase Troponin I High Sens Total Protein Albumin Globulin Albumin/Globulin Ratio Lipase Serum , Qual Urine Color Yellow Urine Clarity Sl. Cloudy Urine pH 6.5 Ur Specific [place] 1.010 Urine Protein Negative Urine Glucose (UA) Normal Urine Ketones Negative Urine Occult Blood 50 H Urine Nitrite Negative Urine Bilirubin Negative Urine Urobilinogen Normal Ur Leukocyte Esterase Negative Urine RBC 0-5 SEEN Urine WBC 0 SEEN Ur Squamous Epith Cells 0-5 SEEN Urine Bacteria 0 SEEN Urine Mucus 0 SEEN Radiography Chest X-Ray - ED: 1 View, Read by ED Physician, Read by Radiologist and Normal Diagnostic Testing: Clinical Impression(s) from Imaging Studies Chest X-Ray 07/14/21 14:10 IMPRESSION: Normal x-ray examination of the chest. Electronically Signed: Amos Arriola MD at 14:31 EST , Service support , Abdomen/Pelvis CT 07/14/21 14:19 IMPRESSION: Small left ovarian cyst. Electronically Signed: Amos Arriola MD at 14:46 EST , Service support , EKG Initial EKG: Attestation: I personally reviewed and interpreted this EKG as follows: Interpretation: Sinus Rhythm (65) and No Acute Injury Pattern Prior EKG tracings: available for review Prior: Unchanged (04/04/2020) Discharge Plan Triage Chief Complaint: General Illness ED Provider: Dominic Piedra Dx/Rx/DC Orders Clinical Impression: Right flank pain, Chest pain Instructions: ED Chest Pain, Uncertain Cause, ED Flank Pain, Uncertain Cause Prescriptions: No Action lorazepam 0.5 mg tablet 0.5 mg PO DAILY PRN (Reason: Anxiety) RF: 0 buspirone 5 mg tablet 5 mg PO BID Qty: 180 RF: 1 cephalexin 500 mg capsule 500 mg PO Q6 Qty: 28 RF: 0 ondansetron 4 mg tablet,disintegrating 4 mg PO Q8H PRN (Reason: nausea and vomiting) Qty: 10 RF: 0 pantoprazole 40 mg tablet,delayed release (DR/EC) See Rx Instructions .ROUTE .COMPLEX Qty: 30 RF: 3 Primary Care Provider: Tala Kenyon Referrals: Tala Kenyon MD [Primary Care Provider] - 3-5 Days Disposition Disposition: Home, Self Care
[2021-07-14 13:07] VITALS: PULSE 89; RESP 16; O2SAT 99
--- NOTE | 2021-07-14 13:20 | EKG12_ITS ---
Test Reason : GENERAL Blood Pressure : / mmHG Vent. Rate : 065 BPM Atrial Rate : 065 BPM P-R Int : 124 ms QRS Dur : 074 ms QT Int : 390 ms P-R-T Axes : 017 079 054 degrees QTc Int : 405 ms Normal sinus rhythm Normal ECG Confirmed by ONEIL HARRISON, HANDY ([id number]), film or videotape editor MANFRED MIXON ([id number]) on 07/16/2021 9:48:10 AM Referred By: AMRIK Confirmed By:HANDY RIGGS MD
[2021-07-14 13:35] LABS: Absolute Lymphocyte Count 1.38 X10^3/uL (0.83-4.51); Absolute Neutrophil Count 3.6 X10^3/uL (2.0-7.7); Basophil# 0.05 X10^3/uL; Basophil% 0.9 % (0-1); Eosinophil# 0.12 X10^3/uL; Eosinophils% 2.1 % (0-5); Hematocrit 40.5 % (37-47); Hemoglobin 13.6 g/dL (12.0-15.0); Lymphocyte # 1.38 X10^3/ul (0.83-4.51); Lymphocyte % 24.5 % (19-41); Mean Corp Hgb Conc 33.6 g/dL (32-36); Mean Corpuscular Hgb 29.2 pg (27.0-32.0); Mean Corpuscular Volume 87.1 fL (81-99); Mean Platelet Vol. 9.8 fl (6.2-12.0); Monocyte# 0.49 X10^3/uL; Monocyte% 8.7 % (0-10); NRBC Flagged by Analyzer 0 % (0-5); Neutrophil # 3.57 X10^3/uL (2.7-7.7); Neutrophil % 63.4 % (47-70); Platelet Count 270 K/mm3 (150-450); RBC Distribution Width CV 12.4 % (11.6-14.6); RBC Distribution Width SD 39.7 fl (35.1-43.9); Red Blood Count 4.65 M/mm3 (4.2-5.4); White Blood Count 5.6 K/mm3 (4.4-11.0)
[2021-07-14] MEDS: 0.9% Normal Saline 1,000 ML 1000 ML IV (13:35)
[2021-07-14] MEDS: Morphine 4 MG/ML Syringe IV (13:36)
[2021-07-14] MEDS: Ondansetron 4 MG/2 ML Vial IV (13:36)
[2021-07-14 13:44] LABS: Bacteria 0 SEEN /hpf (None Seen); Mucous, Urine 0 SEEN /hpf (<or=2+); White Blood Cells 0 SEEN /hpf (0-5)
[2021-07-14 13:45] LABS: Internal QC Validated? YES +Cl - CLEAR BKGD; Pregnancy, Serum, hCG Quali. NEGATIVE Negative
[2021-07-14 13:46] LABS: Color, Urine Yellow (Yellow); Glucose, Dipstick Normal (Normal); Ketone-Dipstick Negative (Negative); Leukocyte Esterase-Dipstick Negative /ul (Negative); Nitrite-Dipstick Negative (Negative); Occult Blood-Urine 50 /ul (Negative); Protein-Dipstick Negative (Negative); Urine Bilirubin Dipstick Negative (Negative); Urine Clarity Sl. Cloudy (Clear); Urine Urobilinogen Normal (Normal); Urine pH 6.5 (5.0 - 8.0)
[2021-07-14 13:55] LABS: ALB/GLOB Ratio 0.9 RATIO (0.9-2.4); AST(SGOT) 7 U/L (15-37); Alanine Aminotransfer ALT/SGPT 17 U/L (13-56); Albumin, Serum 3.2 g/dL (3.2-5.0); Alkaline Phosphatase 71 U/L (45-117); Anion Gap 2 (5-15); BUN 7 mg/dL (7-18); BUN/Creat Ratio 9.4 RATIO (10-20); Calcium,Total 8.7 mg/dL (8.5-10.1); Chloride 109 mmol/L (98-107); Creatinine, Serum 0.75 mg/dL (0.55-1.02); EST Glomerular Filtration Rate 98 mL/min (>60); Est Glom Filt Rate - Afr Amer 118 mL/min (>60); Estimated Creatinine Clearance 116.71 ml/min; Globulin 3.7 g/dL (2.2-4.2); Glucose 93 mg/dL (74-106); Lipase 119 U/L (73-393); Potassium 4.1 mmol/L (3.5-5.1); Protein, Total 6.9 g/dL (6.4-8.2); Sodium Level 139 mmol/L (136-145); Troponin-I HS < 3 pg/mL (3.0-54.0)
[2021-07-14 13:56] LABS: Red Blood Cells-Urine 0-5 SEEN /hpf (0-5); Squamous Epithelial Cells - UA 0-5 SEEN /hpf (5-10)
--- NOTE | 2021-07-14 14:10 | RAD_ITS ---
STUDY: X-RAY CHEST REASON FOR EXAM: Female, 30 years old. Chest pain TECHNIQUE: Single AP portable view of the chest. COMPARISON: Comparison is made with prior study dated 04/04/2020. FINDINGS: EKG electrodes are seen. The lungs are clear and expanded. There is no demonstrated pleural abnormality. Normal size heart. Normal mediastinum and nestor. Normal visualized pulmonary arteries. Normal visualized aortic arch and descending thoracic aorta. Normal visualized thoracic spine. Normal visualized ribs, clavicles, and shoulders. There is no demonstrated abnormality of the visualized soft tissue structures of the upper abdomen. RAD/Chest 1 View (Portable) IMPRESSION: Normal x-ray examination of the chest. Electronically Signed: Amos Arriola MD at 14:31 EST , Service support ,
--- NOTE | 2021-07-14 14:19 | CT_ITS ---
STUDY: CT ABDOMEN AND PELVIS WITHOUT CONTRAST REASON FOR EXAM: Female, 30 years old. Right flank pain RADIATION DOSAGE (If Supplied By Facility): CTDIvol = ( 7.63 ) mGy, DLP = ( 386.87 ) mGycm TECHNIQUE: Transaxial images were obtained from the dome of the diaphragm to the symphysis pubis without oral contrast, and without intravenous contrast. Sagittal and coronal images were reconstructed. Individualized dose optimization techniques were used for this CT. COMPARISON: None. FINDINGS: The visualized lung bases are unremarkable. The visualized portions of the heart are within normal limits. Normal liver. Normal gallbladder and extrahepatic biliary system. Normal spleen. Normal pancreas. Normal bilateral adrenal glands. Normal right kidney. Normal left kidney. Normal visualized stomach. Normal small intestine. Normal colon. The appendix is visualized and appears normal. Normal abdominal aorta. Normal inferior vena cava. Normal retroperitoneum. Normal urinary bladder. There is a 2 cm cyst in the left ovary. There is a small umbilical hernia containing fat. Normal osseous structures. CT/Abdomen/Pelvis without Cont IMPRESSION: Small left ovarian cyst. Electronically Signed: Amos Arriola MD at 14:46 EST , Service support ,
[2021-07-14] MEDS: proMETHazine 25 MG/ML Syringe 6.25 MG IM (15:16)
[2021-07-14 15:55] VITALS: BP 124/74; PULSE 62; RESP 15; O2SAT 98
== END 2021-07-14 15:57 | disposition home or self-care (01) ==
PROVIDERS: Emergency Provider Emergency Medicine; PCP Internal Medicine
DX: R10.9 Unspecified abdominal pain (principal); R07.9 Chest pain, unspecified; N83.202 Unspecified ovarian cyst, left side; R11.0 Nausea; R06.02 Shortness of breath; Z79.1 Long term (current) use of non-steroidal anti-inflammatories (NSAID); Z87.440 Personal history of urinary (tract) infections
CPT/HCPCS: 71045; 74176; 80053; 81001; 83690; 84484; 84703; 85025; 93005; 96361; 96372; 96374; 96375; 99284; J7030; A4216; J2405

== ENCOUNTER → 2021-07-18 11:48 | Outpatient (CLI) | payer OTHER, SELFPAY ==
[2021-07-18 11:50] LABS: Bacteria 0 SEEN /hpf (None Seen); Mucous, Urine 0 SEEN /hpf (<or=2+); Red Blood Cells-Urine 0 SEEN /hpf (0-5); Squamous Epithelial Cells - UA 0 SEEN /hpf (5-10); White Blood Cells 0 SEEN /hpf (0-5)
[2021-07-18 15:09] LABS: Glucose, Dipstick Normal (Normal); Ketone-Dipstick Negative (Negative); Leukocyte Esterase-Dipstick Negative /ul (Negative); Nitrite-Dipstick Negative (Negative); Occult Blood-Urine Negative /ul (Negative); Protein-Dipstick Negative (Negative); Specific Gravity, Urine 1.015 (1.002-1.030); Urine Bilirubin Dipstick Negative (Negative); Urine Urobilinogen Normal (Normal)
[2021-07-18 15:15] LABS: Color, Urine Yellow (Yellow); Urine Clarity Clear (Clear)
== END ==
PROVIDERS: PCP Internal Medicine; Referring Provider Nurse Practitioner Family; Visit Provider Nurse Practitioner Family
DX: R10.9 Unspecified abdominal pain (principal)
CPT/HCPCS: 81001; 87086

== ENCOUNTER 2021-09-03 14:44 | Outpatient (CLI) | payer OTHER, SELFPAY ==
--- NOTE | 2021-09-03 14:50 | US_ITS ---
History: Ovarian cyst Pelvic ultrasound: Findings: Endovaginal ultrasound imaging of the pelvis demonstrates the uterus to measure 8.3 cm in length with ill-defined 10 mm thick endometrium. 2.5 cm complex left ovarian cyst noted which is likely physiologic in nature. Left ovary measures 5.3 x 3.7 x 2.8 cm. No evidence of ovarian torsion. There is a small amount of physiologic free pelvic fluid present. IMPRESSION: 2.5 cm complex left ovarian cyst. at 1553 Reported and signed by: Cuco Hsu MD Electronically Signed: Cuco Hsu MD at 15:52 EST Tel , Service support , US/Transvaginal Non-
--- NOTE | 2021-09-03 14:50 | US_ITS ---
History: Ovarian cyst Pelvic ultrasound: Findings: Endovaginal ultrasound imaging of the pelvis demonstrates the uterus to measure 8.3 cm in length with ill-defined 10 mm thick endometrium. 2.5 cm complex left ovarian cyst noted which is likely physiologic in nature. Left ovary measures 5.3 x 3.7 x 2.8 cm. No evidence of ovarian torsion. There is a small amount of physiologic free pelvic fluid present. IMPRESSION: 2.5 cm complex left ovarian cyst. at 1553 Reported and signed by: Cuco Hsu MD Electronically Signed: Cuco Hsu MD at 15:52 EST Tel , Service support , US/Pelvic (Non )
== END 2021-09-03 23:59 | disposition short-term general hospital (02) ==
LOC: US 14:48
PROVIDERS: PCP Internal Medicine; Referring Provider Nurse Practitioner Women's Health; Visit Provider Nurse Practitioner Women's Health
DX: N83.292 Other ovarian cyst, left side (principal); Z90.721 Acquired absence of ovaries, unilateral; Z87.42 Personal history of other diseases of the female genital tract
CPT/HCPCS: 76830; 76856

== ENCOUNTER 2021-12-09 16:12 | Outpatient (CLI) | payer OTHER, SELFPAY ==
[2021-12-09 16:20] LABS: Red Blood Cells-Urine 0 SEEN /hpf (0-5)
[2021-12-09 16:32] LABS: Color, Urine Yellow (Yellow); Glucose, Dipstick Normal (Normal); Ketone-Dipstick Negative (Negative); Leukocyte Esterase-Dipstick Negative /ul (Negative); Nitrite-Dipstick Negative (Negative); Occult Blood-Urine Negative /ul (Negative); Protein-Dipstick Negative (Negative); Urine Bilirubin Dipstick Negative (Negative); Urine Clarity Clear (Clear); Urine Urobilinogen Normal (Normal)
[2021-12-09 16:46] LABS: Bacteria 0 SEEN /hpf (None Seen); Mucous, Urine 0 SEEN /hpf (<or=2+)
[2021-12-09 16:47] LABS: Squamous Epithelial Cells - UA 0-5 SEEN /hpf (5-10)
[2021-12-09 16:48] LABS: White Blood Cells 0-5 SEEN /hpf (0-5)
== END 2021-12-09 23:59 | disposition home or self-care (01) ==
LOC: LABSPEC 16:14
PROVIDERS: PCP Internal Medicine; Visit Provider Physician Assistant
DX: M54.50 Low back pain, unspecified (principal)
CPT/HCPCS: 81001; 87086; 87088

== ENCOUNTER → 2022-01-16 | Outpatient (CLI) | payer OTHER, SELFPAY ==
--- NOTE | 2022-01-16 14:32 | US_ITS ---
INDICATION: pelvic pain, follow up left ovarian cyst, history of right oophorectomy. EXAMINATION: Ultrasound US Pelvis Non OB Complete With Transvaginal Imaging TECHNIQUE: Transvaginal pelvic ultrasound was performed. Grayscale, spectral waveform, and color flow Doppler evaluation of the adnexa. COMPARISON: 09/03/2021 FINDINGS: UTERUS: Anteverted. The uterus measures 8.6 x 6.3 x 4.8 cm. Multiple cervical nabothian cysts again identified. The endometrial stripe measures 11 mm in AP diameter which is within normal limits. RIGHT OVARY: Surgically absent. LEFT OVARY: 4.2 x 3.7 x 3.1 cm. Complex cyst with internal reticular echoes measures up to 2.4 cm. There is normal arterial inflow and venous outflow present in the left ovary. FREE FLUID: None. US/Transvaginal Non- IMPRESSION: Probable hemorrhagic cyst left ovary. Recommend routine sonographic follow-up in 6-10 weeks. Electronically Signed: Figueroa Russell MD at 16:40 EDT ,
--- NOTE | 2022-01-16 14:32 | US_ITS ---
INDICATION: pelvic pain, follow up left ovarian cyst, history of right oophorectomy. EXAMINATION: Ultrasound US Pelvis Non OB Complete With Transvaginal Imaging TECHNIQUE: Transvaginal pelvic ultrasound was performed. Grayscale, spectral waveform, and color flow Doppler evaluation of the adnexa. COMPARISON: 09/03/2021 FINDINGS: UTERUS: Anteverted. The uterus measures 8.6 x 6.3 x 4.8 cm. Multiple cervical nabothian cysts again identified. The endometrial stripe measures 11 mm in AP diameter which is within normal limits. RIGHT OVARY: Surgically absent. LEFT OVARY: 4.2 x 3.7 x 3.1 cm. Complex cyst with internal reticular echoes measures up to 2.4 cm. There is normal arterial inflow and venous outflow present in the left ovary. FREE FLUID: None. US/Pelvic (Non ) IMPRESSION: Probable hemorrhagic cyst left ovary. Recommend routine sonographic follow-up in 6-10 weeks. Electronically Signed: Figueroa Russell MD at 16:40 EDT ,
== END | disposition home or self-care (01) ==
LOC: OPUS 14:29 → US 14:31
PROVIDERS: PCP Internal Medicine; Visit Provider Nurse Practitioner Women's Health
DX: R10.2 Pelvic and perineal pain (principal); Z87.42 Personal history of other diseases of the female genital tract
CPT/HCPCS: 76830; 76856

== ENCOUNTER → 2022-09-10 | Outpatient (CLI) | payer OTHER, SELFPAY ==
[2022-09-10 12:20] LABS: Absolute Lymphocyte Count 1.85 X10^3/uL (0.83-4.51); Absolute Neutrophil Count 4.4 X10^3/uL (2.0-7.7); Basophil# 0.06 X10^3/uL; Basophil% 0.8 % (0-1); Eosinophil# 0.13 X10^3/uL; Eosinophils% 1.8 % (0-5); Hematocrit 39.1 % (37-47); Hemoglobin 11.8 g/dL (12.0-15.0); Lymphocyte # 1.85 X10^3/ul (0.83-4.51); Lymphocyte % 25.9 % (19-41); Mean Corp Hgb Conc 30.2 g/dL (32-36); Mean Corpuscular Hgb 25.7 pg (27.0-32.0); Mean Platelet Vol. 10.3 fl (6.2-12.0); Monocyte# 0.72 X10^3/uL; Monocyte% 10.1 % (0-10); NRBC Flagged by Analyzer 0 % (0-5); Neutrophil # 4.35 X10^3/uL (2.7-7.7); Neutrophil % 61.1 % (47-70); Platelet Count 335 K/mm3 (150-450); RBC Distribution Width CV 14.1 % (11.6-14.6); RBC Distribution Width SD 43.7 fl (35.1-43.9); White Blood Count 7.1 K/mm3 (4.4-11.0)
[2022-09-10 12:42] LABS: AST(SGOT) 9 U/L (15-37); Alanine Aminotransfer ALT/SGPT 18 U/L (13-56); Albumin, Serum 3.5 g/dL (3.2-5.0); Alkaline Phosphatase 79 U/L (45-117); Anion Gap 3 (5-15); BUN 9 mg/dL (7-18); BUN/Creat Ratio 10.6 RATIO (10-20); Calcium,Total 8.7 mg/dL (8.5-10.1); Chloride 108 mmol/L (98-107); Cholesterol 219 mg/dL (200); Creatinine, Serum 0.85 mg/dL (0.55-1.02); EST Glomerular Filtration Rate 84 mL/min (>60); Est Glom Filt Rate - Afr Amer 101 mL/min (>60); Globulin 3.5 g/dL (2.2-4.2); Glucose 87 mg/dL (74-106); High Density Lipoprotein 51 mg/dL; Potassium 4.1 mmol/L (3.5-5.1); Sodium Level 140 mmol/L (136-145); Thyroid Stim Hormone (TSH) 0.93 uIU/mL (0.358-3.74); Triglycerides 100 mg/dL; Very Low Density Lipoprotein 20 mg/dL (5-40)
== END | disposition home or self-care (01) ==
LOC: BIMLAB 09:47
PROVIDERS: PCP Internal Medicine; Referring Provider Nurse Practitioner Family; Visit Provider Nurse Practitioner Family
DX: Z00.00 Encounter for general adult medical examination without abnormal findings (principal); F41.9 Anxiety disorder, unspecified; F32.A Depression, unspecified; K21.9 Gastro-esophageal reflux disease without esophagitis
CPT/HCPCS: 36415; 80053; 80061; 84443; 85025

== ENCOUNTER → 2022-09-22 | Outpatient (CLI) | payer OTHER, SELFPAY ==
[2022-09-22 16:48] LABS: HIV - WCH Non-Reactive (Nonreactive); Hepatitis C Antibody Non-Reactive (Nonreactive); Syphilis Antibodies Non-reactive
[2022-09-24 19:13] LABS: HSV 1 IgG < 0.91 index (0.00-0.90); HSV 2 IgG < 0.91 index (0.00-0.90)
[2022-09-25 06:08] LABS: Chlamydia By Nucleic Acid AMP Negative (Negative)
[2022-09-26 14:17] LABS: Gonococcus By Nucleic Acid AMP Negative (Negative)
[2022-09-28 13:27] LABS: HPV APTIMA, High Risk Negative (Negative)
== END | disposition home or self-care (01) ==
PROVIDERS: PCP Internal Medicine; Referring Provider Nurse Practitioner Women's Health; Visit Provider Nurse Practitioner Women's Health
DX: Z01.419 Encounter for gynecological examination (general) (routine) without abnormal findings (principal); Z20.2 Contact with and (suspected) exposure to infections with a predominantly sexual mode of transmission
CPT/HCPCS: 36415; 86695; 86696; 86703; 86780; 86803; 87491; 87591; 87624; 88175; G0145

== ENCOUNTER → 2022-10-08 | Outpatient (CLI) | payer OTHER, SELFPAY ==
--- NOTE | 2022-10-08 15:54 | US_ITS ---
INDICATION: pain EXAMINATION: Ultrasound US Pelvis Non OB Complete With Transvaginal Imaging TECHNIQUE: Transabdominal and transvaginal pelvic ultrasound was performed. Grayscale, spectral waveform, and color flow Doppler evaluation of the adnexa. COMPARISON: Pelvic ultrasound from 01/16/2022 FINDINGS: Transabdominally, uterus measures 9.5 x 3.7 x 6 cm. Best seen transvaginally, endometrial complex measures 8 mm diameter. Trace amount of endocervical fluid noted. No myometrial mass identified. Small cervical nabothian cyst present. Trace free fluid within posterior cul-de-sac. No adnexal mass identified. Nonvisualized right ovary, history of right oophorectomy. Transvaginally, left ovary measures 4.4 x 3.6 x 4 cm with normal color Doppler flow and spectral Doppler waveforms. There are few anechoic left ovarian follicles, with dominant anechoic and simple appearing follicle measuring 1.8 x 1.3 x 1.6 cm. US/Pelvic (Non ) IMPRESSION: 1. Dominant, simple appearing 1.8 cm left ovarian follicle with trace free pelvic fluid. 2. Previous right oophorectomy. 3. Trace endocervical fluid, possibly physiologic in nature. Follow-up as clinically warranted. Electronically Signed: Tommie Donohue MD at 22:12 EST ,
== END | disposition home or self-care (01) ==
LOC: US 15:53
PROVIDERS: PCP Internal Medicine; Referring Provider Nurse Practitioner Women's Health; Visit Provider Nurse Practitioner Women's Health
DX: Z87.42 Personal history of other diseases of the female genital tract (principal); R10.2 Pelvic and perineal pain
CPT/HCPCS: 76830; 76856